=== PATIENT | male | born 1950 | race Two or more races ===

== ENCOUNTER 2024-07-03 08:21 | Outpatient (CLI) | payer OTHER ==
[2024-07-03 10:05] LABS: CREATININE SERUM 1.15 mg/dL (0.70-1.30)
== END 2024-07-03 08:25 | disposition home or self-care (01) ==
LOC: LAB 08:21
DX: N18.2 Chronic kidney disease, stage 2 (mild) (principal)

== ENCOUNTER 2024-09-23 08:08 | Outpatient (CLI) | payer OTHER ==
[2024-09-23 10:38] LABS: CALCIUM 8.9 mg/dL (8.5-10.1); CREATININE SERUM 1.05 mg/dL (0.70-1.30); GFR 68.86; POTASSIUM 4.14 mEq/L (3.5-5.1)
[2024-09-23 10:52] LABS: PROSTATIC SPECIFIC ANTIGEN 6.25 NG/ML (0.010-4.00)
[2024-09-26 09:08] LABS: HSV I IGG TYPE SPECIFIC Reactive (Non Reactive)
== END 2024-09-23 23:00 | disposition home or self-care (01) ==
LOC: LAB 08:08
DX: B34.9 Viral infection, unspecified (principal); R73.03 Prediabetes; N47.6 Balanoposthitis; C61 Malignant neoplasm of prostate

== ENCOUNTER → 2024-10-27 07:54 | Outpatient (CLI) | payer OTHER ==
[2024-10-27 08:57] LABS: HEMATOCRIT 44.9 % (39.0-48.0); HEMOGLOBIN 14.9 g/dL (13-16.00); MEAN CELL VOLUME 86.6 fL (80.0-100.00); MEAN CORPUSCULAR HEMOGLOBIN 28.8 pg (27.00-32.0); MEAN CORPUSCULAR HGB CONC 33.3 g/dl (32.0-36.0); PLATELET COUNT 234 K/uL (150-450); RED BLOOD COUNT 5.18 M/uL (4.00-6.00); RED CELL DISTRIBUTION WIDTH 14.3 % (11.5-14.5)
[2024-10-27 09:35] LABS: ALBUMIN 3.5 gm/dL (3.4-5.0); BILIRUBIN TOTAL 0.53 mg/dL (0.3-1.2); CALCIUM 9.3 mg/dL (8.5-10.1); CREATININE SERUM 1.11 mg/dL (0.70-1.30); GFR 64.58; GLOBULINA 3.5 G/DL (2.4-3.5); POTASSIUM 4.45 mEq/L (3.5-5.1)
[2024-10-27 09:42] LABS: INR 0.97; PARTIAL THROMBOPLASTIN TIME 27.6 SECONDS (22.0-34.0); PROTHROMBIN TIME 10.6 SECONDS (9.0-11.5)
[2024-10-28 07:09] LABS: HEPATITIS A ANTIBODY IGG Positive (Negative); HEPATITIS B CORE IGM Negative (Negative); HEPATITIS B SURFACE ANTIBODY Reactive (.); HEPATITIS C VIRUS ANTIBODY Non Reactive (Non Reactive)
[2024-10-28 13:06] LABS: IMMUNOGLOBULIN A 166 mg/dL (61-437)
[2024-10-28 15:10] LABS: TISSUE TRANSGLUTAMINASE IGA 2 U/mL (0-3)
== END | disposition home or self-care (01) ==
LOC: LAB 07:54
DX: R79.9 Abnormal finding of blood chemistry, unspecified (principal); Z13.228 Encounter for screening for other metabolic disorders; R79.1 Abnormal coagulation profile; D80.3 Selective deficiency of immunoglobulin G [IgG] subclasses; B19.20 Unspecified viral hepatitis C without hepatic coma; B18.1 Chronic viral hepatitis B without delta-agent; R76.8 Other specified abnormal immunological findings in serum; D80.2 Selective deficiency of immunoglobulin A [IgA]

== ENCOUNTER 2024-10-27 08:28 | Outpatient (CLI) | payer OTHER | END 2024-10-27 08:30 | disposition home or self-care (01) | LOC: SONOGRAMA 08:28 | DX: R10.13 Epigastric pain (principal) ==

== ENCOUNTER 2024-11-29 09:40 | Emergency (ER) | payer OTHER ==
[~2024-11-29] VITALS: Ht 190.5 cm; Wt 79.8 kg
[2024-11-29 10:16] VITALS: BP 120/78; O2SAT 99
[2024-11-29 11:19] LABS: BASO % 0.4 % (0.1-1.2); EOS # 0.24 (0.04-0.54); EOS % 2.4 % (0.7-7.0); HEMATOCRIT 45.7 % (40.1-51.0); LYMPH # 1.09 (1.18-3.74); LYMPH % 10.9 % (19.3-53.1); MEAN CORPUSCULAR HEMOGLOBIN 28.1 pg (25.6-32.2); MONO # 1.16 (0.24-0.82); MONO % 11.6 % (4.7-12.5); NEUT # 7.43 (1.56-6.13); NEUT % 74.4 % (34.0-71.1); PLATELET COUNT 243 K/uL (163-369); RED BLOOD COUNT 5.33 M/uL (4.63-6.08); RED CELL DISTRIBUTION WIDTH 13.3 % (11.6-14.4)
[2024-11-29 11:46] LABS: COVID-19 AG NEGATIVE (NEGATIVE); INFLUENZA A AG NEGATIVE (NEGATIVE)
== END 2024-11-29 13:30 | disposition home or self-care (01) ==
LOC: ER 09:48
PROVIDERS: General Practice
DX: B34.9 Viral infection, unspecified (principal); Z20.822 Contact with and (suspected) exposure to COVID-19; Z91.041 Radiographic dye allergy status

== ENCOUNTER 2025-04-01 08:48 | Emergency (ER) | payer OTHER ==
[~2025-04-01] VITALS: Ht 190.5 cm; Wt 78.9 kg
[2025-04-01] MEDS ORDERED: PANTOPRAZOLE SO40 MG PO (08:57)
[2025-04-01] MEDS ORDERED: VALTREX1000 MG PO (08:58)
[2025-04-01] MEDS ORDERED: LASIX20 MG (08:58)
[2025-04-01] MEDS ORDERED: PEPCID AC20 MG PO (09:45)
[2025-04-01] MEDS ORDERED: VALACYCLOVIR1000 MG PO (09:45)
== END 2025-04-01 10:46 | disposition home or self-care (01) ==
LOC: ER 08:48
DX: B02.9 Zoster without complications (principal); Z91.041 Radiographic dye allergy status
CPT/HCPCS: 96365; 99282; J3490